=== PATIENT | female | born 1980 | race Caucasian/White ===

== ENCOUNTER → 2021-11-15 08:47 | Outpatient (BNVA) | payer MEDICAID, SELFPAY | PROVIDERS: Visit Provider Family Medicine Adult Medicine | DX: R68.89 Other general symptoms and signs (principal); N95.2 Postmenopausal atrophic vaginitis; M51.16 Intervertebral disc disorders with radiculopathy, lumbar region; Z78.9 Other specified health status | CPT/HCPCS: 80053; 82672; 83036; 84144; 84443; 85025 ==

== ENCOUNTER → 2021-11-21 10:25 | Outpatient (BNVA) | payer MEDICAID, SELFPAY | PROVIDERS: Referring Provider Family Medicine Adult Medicine; Visit Provider Orthopaedic Surgery | DX: S22.080A Wedge compression fracture of T11-T12 vertebra, initial encounter for closed fracture (principal); M21.372 Foot drop, left foot; M47.894 Other spondylosis, thoracic region; X58.XXXA Exposure to other specified factors, initial encounter | CPT/HCPCS: 72070; 72110 ==

== ENCOUNTER 2021-12-04 12:34 | Outpatient (CLI) | payer MEDICAID, SELFPAY ==
--- NOTE | 2021-12-04 13:00 | MR_ITS ---
WS: [id number] MRI LUMBAR SPINE NONCONTRAST HISTORY: M51.16 - Intervertebral disc disorders with radiculopathy... COMPARISON: None available. TECHNIQUE: Sagittal and axial multisequence imaging is submitted. Focal increased signal within T8, T12 and L3 consistent with hemangiomas. Normal lumbar alignment with no compression fractures or marrow edema. Disc spaces and vertebral body heights are well-preserved. Conus terminates normally at L1-2 disc level. L1-L2: Normal. L2-L3: Normal. L3-L4: Mild ligamentum flavum hypertrophy. No stenosis. L4-L5: Mild annular disc bulging with mild ligamentum flavum disease and facet arthritis. Shallow dis c protrusions in the proximal neural foramen bilaterally with annular fissures. There is very slight contact on the posterior surface of the exiting RIGHT L4 nerve root. There is very slight disc contac t but no displacement on the traversing L5 nerve roots. L5-S1: Normal. MR/MR lumbar spine wo con* [id number] IMPRESSION: 1. Bilateral foraminal disc protrusion with annular fissures at L4-5. Mild con tact on the posterior RIGHT L4 nerve root. Minimal contact but no displacement of the traversing L5 nerve roots. 2. No high-grade central or foraminal stenosis.
== END 2021-12-04 12:35 | disposition home or self-care (01) ==
PROVIDERS: Visit Provider Orthopaedic Surgery
DX: M51.16 Intervertebral disc disorders with radiculopathy, lumbar region (principal); M51.26 Other intervertebral disc displacement, lumbar region
CPT/HCPCS: 72148

== ENCOUNTER → 2021-12-20 11:02 | Outpatient (BNVA) | payer MEDICAID, SELFPAY | PROVIDERS: Visit Provider Orthopaedic Surgery | DX: Z20.822 Contact with and (suspected) exposure to COVID-19 (principal) | CPT/HCPCS: 87635 ==

== ENCOUNTER 2021-12-27 07:06 | Day surgery (SDC) | payer MEDICAID, SELFPAY ==
[2021-12-20 11:59] VITALS: BMI 31.4
[2021-12-27] VITALS (13 sets, daily range): BP systolic 116–138; BP diastolic 68–92; PULSE 57–76; RESP 18; TEMP 36.1–36.6; O2SAT 96–100
--- NOTE | 2021-12-27 | XR_ITS ---
WS: [id number] INTRAOPERATIVE TECHNIQUE: 2 Spot fluoroscopic images for intraoperative purposes. FLUOROSCOPY TIME: 10.1 seconds CLINICAL INFORMATION: lumbar decompression COMPARISON: None. FINDINGS: Localization marker projected over the LEFT L4-L5 interspace dorsally. XR/XR lumbar spine 1V [id number] IMPRESSION: Images obtained for intraoperative purposes.
--- NOTE | 2021-12-27 | SCC_ITS ---
Procedure done: 1. Bilateral L4/5 laminectomy with partial facetectomies 10.1 seconds of fluoroscopic guidance, for a cumulative dose of 2.84 mGy, was provided to Dr. Andrews by the radiology department. C-arm images of the lumbar spine were saved for the patient's permanent record. [facility]
--- NOTE | 2021-12-27 07:17 | W.PM.OPSUD ---
Surgery/Procedure H&P Update DATE OF PROCEDURE: December 27, 2021 DATE H&P PERFORMED: 12/07/21 H&P UPDATE INFORMATION: I have reviewed H&P completed within last 30 days, I have examined patient prior to procedure and No changes to prior documentation PLANNED PROCEDURE: Operation Date: 12/27/21 08:10 Proposed Procedures p Lumbar Spine Decompression m48.062/(Not Applicable) - Jorje Andrews DO
[2021-12-27] MEDS: sodium chloride 0.9% 1,000 ML 30 ML IV (07:42)
[2021-12-27] MEDS: clindamycin 900 MG/50 ML PREMIX 100 MG IV (08:00)
--- NOTE | 2021-12-27 08:37 | ANES.PREANE2 ---
Pre-Anesthetic Assessment Height/Weight: Height 1.63 m Weight 83.007 kg Temp Pulse Resp BP Pulse Ox 97 F L 76 18 135/92 97 12/27/21 07:36 12/27/21 07:36 12/27/21 07:36 12/27/21 07:36 12/27/21 07:36 Preop Diagnosis: Lumbar stenosis L4-5 Operation Date: 12/27/21 08:10 Proposed Procedures p Lumbar Spine Decompression m48.062/(Not Applicable) - Jorje Andrews, DO Familial anesthetic complications: None Was Beta Hailey taken within 24 hours: N/A Was Clonidine taken within 24 hours: N/A Last intake: Intake Last Liquid Date 12/26/21 Last Liquid Time 20:00 Last Solid Date 12/26/21 Last Solid Time 20:00 Social Tobacco and No alcohol Exam alert, oriented x 3, clear to auscultation bilaterally and regular rate & rhythm Airway Submandibular: within normal limits Cervical ROM: within normal limits Mallampati: Class II Dentition: caps Pulmonary Asthma and Chronic Obstructive Pulmonary Disease Musc/skel Lower Back Pain and Osteoarthritis/DJD Chronic pain/opioid Neuropsych Neuropathy Anesthetic Plan ASA status: 3 Anesthesia: General Risk of > 500 ml blood loss (7ml/kg in children): No Medications/Allergies Home Medications Medication Instructions Recorded Confirmed Last Taken Type albuterol sulfate 90 mcg/actuation 2 puff INHALATION Q6H PRN #8.5 g 11/16/21 12/27/21 12/27/21 06:30 Rx aerosol inhaler cyclobenzaprine 10 mg tablet 10 mg PO TID #90 tab 11/16/21 12/27/21 1 Day Ago Rx ~12/26/21 meloxicam 15 mg tablet 15 mg PO DAILY #30 tab 11/16/21 12/27/21 2 Weeks Ago Rx ~12/13/21 oxycodone 5 mg tablet 5 mg PO Q4H PRN 12/20/21 12/27/21 1 Day Ago History ~12/26/21 Allergies Allergy/AdvReac Type Severity Reaction Status Date / Time amoxicillin Allergy Severe ALGY-Anaphy Verified 12/27/21 07:34 laxis Penicillins Allergy Severe ALGY-Anaphy Verified 12/27/21 07:34 laxis gabapentin Allergy Intermediate ALGY-Bliste Verified 12/27/21 07:34 r acetaminophen [From Vicodin] Allergy Mild ALGY-Hives Verified 12/27/21 07:34 hydrocodone [From Vicodin] Allergy Mild ALGY-Hives Verified 12/27/21 07:34 Current Medications Generic Name Dose Route Start Last Admin Trade Name Zander PRN Reason Stop Dose Admin Sodium Chloride 1,000 mls @ 30 mls/hr 12/27/21 07:30 12/27/21 07:42 Sodium Chloride 0.9% IV 12/28/21 07:29 30 mls/hr .Q24H AMOS Administration PFSH Anesthesia Medical History Asthma Bladder prolapse Cigarette smoker Deviated septum Heat intolerance Left foot drop Lumbar disc disease with radiculopathy Participant in health and wellness plan Perimenopausal atrophic vaginitis T12 compression fracture Surgical History H/O removal of cyst History of partial hysterectomy Family History Other CAD (coronary artery disease) Cancer Social History Second hand smoke exposure: Yes Alcohol intake: never Marital status: Current occupational status: employed Data Anesthesia Cardiac Studies: No Data to Display
--- NOTE | 2021-12-27 08:57 | PM.OP ---
Operative Report Date of procedure: December 27, 2021 Pre-op diagnosis: Preop Diagnosis Lumbar stenosis L4-5 with neurogenic claudication Post-op diagnosis: same Procedure done: 1. Bilateral L4/5 laminectomy with partial facetectomies Surgeon: Jorje Andrews Dinkey Brakeman: [place] Dinkey Brakeman: The surgical assistant certified, SAE Rai was needed for his expertise under the microscope. He was important and necessary throughout the procedure to complete in a safe and timely manner. He assisted with patient positioning prepping and draping tissue retraction suctioning of the operative field protection of the dural sac and tissue closure Estimated blood loss (mL): 5 Procedure: Bilateral L4/5 laminectomy with partial facetectomies Patient is brought to the operative suite. After undergoing anesthesia they are placed in the prone position. All areas of impingement are well padded. Patient is then prepped and draped in the normal sterile fashion. A skin incision is made over the L4/5 level. This is confirmed under c-arm guidance. A series of dilators are passed and the tubular retractor is docked on the L4 lamina. A bovie is used to clear the soft tissue off the lamina and the L 4/5 facet joint. A high speed alexus is then used to perform the laminectomy and take down the medial aspect of the L 4/5 facet joint. A kerrison rongeure was then used to take down the remaining lamina and smooth the edged of the laminectomy up to the point where the ligamentum flavum attaches. Attention was then brought to the medial aspect of the facet joint. The remaining medial aspect of the superior and inferior aspect of the facet joint were taken down with the kerrison from the pedicle of L4 to L 5. The facet joint had significant hypertrophy. Attention was then brought to the Ligamentum Flavum. The ligament was taken down from the lamina of L4 to L5 and out medially to the remaining facet joint. The ligament was thick. The dura was then exposed. The dura was in good repair. The L4 nerve was then traced with a curette out the L4/5 foramen and found to be adequately decompressed. The L5 nerve was traced with a curette around the L5 pedicle. The lateral recess was opened with a kerrison helping to further decompress the L5 nerve. The tubular retractor was then tilted to the contralateral side. The bovie was used to take down the soft tissue on the spinous process. The high speed alexus was used to take down the spinous process and then the contralateral lamina of L4. The kerrison rongeur was used to take down the remaining lamina to the point where the ligamentum flavum attached and the ligamentum flavum was taken down from L4 to L5. The kerrison rongeur was then used to reach across and take down the medial aspect of the contralateral L4/5 facet joint.The currete was used to trace the contralateral L4 nerve out the L4/5 foramen to make sure it was decompressed adequatesly and the L5 was traced around the L5 pedicle. The lateral recess was opened further with the kerrison to ensure the L5 is adequately decompressed. Wound is then irrigated copiously with saline and surgiflo is used to stop any bleeding. The tubular retractor is removed and the wound is closed with vicryl and monocryl suture. Glue is then used to protect the wound. A sterile dressing is then placed. Patient was then placed in the supine position and transferred to the PACU in stable condition.
[2021-12-27] MEDS: fentaNYL 50 mcg/mL INJ 2mL IVP (09:32)
[2021-12-27] MEDS: oxyCODONE 5 mg IR Tab/Cap PO (10:25)
--- NOTE | 2021-12-27 10:25 | ANE.PACU2 ---
Inpatient post-anesthesia follow up: Airway intact: Yes Vital signs: Temperature 97.8 F Pulse Rate 68 Respiratory Rate 18 Blood Pressure 138/87 Pulse Oximetry 98 Oxygen Delivery Me thod Room Air Oxygen Flow Rate 5 Fraction of Inspir ed Oxygen Hydration adequate: Yes Nausea and vomiting: No Pain level: 3 Mental status: Baseline
== END 2021-12-27 11:03 | disposition home or self-care (01) ==
PROVIDERS: PCP Family Medicine Adult Medicine; Visit Provider Orthopaedic Surgery
PROC: (CPT 63005; principal; 2021-12-27 08:10)
DX: M48.062 Spinal stenosis, lumbar region with neurogenic claudication (principal); J44.9 Chronic obstructive pulmonary disease, unspecified; M19.90 Unspecified osteoarthritis, unspecified site; G89.29 Other chronic pain; Z79.01 Long term (current) use of anticoagulants; F17.210 Nicotine dependence, cigarettes, uncomplicated; Z82.49 Family history of ischemic heart disease and other diseases of the circulatory system
CPT/HCPCS: 63047; 72020; 76000; 96374; J1100; J1200; J1885; J2250; J2370; J2405; J2704; J2710; J3010; J3490; J7030

== ENCOUNTER → 2022-03-22 10:15 | Outpatient (BNVA) | payer MEDICAID, SELFPAY | PROVIDERS: PCP Family Medicine Adult Medicine; Visit Provider Orthopaedic Surgery | DX: Z47.89 Encounter for other orthopedic aftercare (principal); Z98.890 Other specified postprocedural states | CPT/HCPCS: 99213 ==

== ENCOUNTER 2022-05-15 15:38 | Outpatient (CLI) | payer MEDICAID, SELFPAY ==
--- NOTE | 2022-05-15 16:00 | MR_ITS ---
WS: [id number] MRI LUMBAR SPINE WITH CONTRAST TECHNIQUE: Sagittal T1, T2 and STIR imaging. Axial T1 and T2 imaging. Post gadolinium imaging was obt ained. CLINICAL INFORMATION: M48.062 - Spinal stenosis, lumbar region with neurogenic ... COMPARISON: MRI December 04, 2021 FINDINGS: Mild lumbar curve. No acute compression. Benign hemangiomas T12 and L3 vertebral bodies. Postoperativ e changes bilateral hemilaminectomy L4-L5 is new from previous. L1-L2: Mild annular bulging. Spinal canal and foramen are patent. L2-L3: Normal. L3-L4: No significant disc bulging. Mild facet arthropathy. Spinal canal and foramen are patent. L4-L5: Hemilaminectomies are new compared to previous. Normal expected postoperative enhancement. Sli ght effacement of ventral thecal sac. Small bilateral foraminal protrusions similar to previous with small RIGHT annular fissure. Mild RIGHT greater than LEFT foraminal narrowing. Decompression subartic ular recess bilaterally. Mild facet arthropathy. L5-S1: Mild annular bulging. Mild facet arthropathy. Spinal canal and foramen are patent. Tiny shallow disc protrusions mid cervical spine at C4-C5 and C5-C6. This is unchanged from previous. MR/MR lumbar spine wo/w con [id number] IMPRESSION: 1. Postoperative changes hemilaminectomies L4-L5 new from previous. Decompress ion of the subarticular recess and traversing L5 nerve roots compared to previo us. Normal postoperative enhancement. Spinal canal is patent. 2. Small bilateral foraminal protrusions L4-L5 similar to previous with mild b ilateral foraminal narrowing RIGHT greater than LEFT. Tiny RIGHT annular fissur e. 3. No other significant changes compared to previous. 4. No other remarkable findings.
[2022-05-15] MEDS: gadobenate dimeglumine 5 mL vial IV (17:15)
== END 2022-05-15 15:39 | disposition home or self-care (01) ==
LOC: RAD 15:42
PROVIDERS: PCP Family Medicine Adult Medicine; Visit Provider Orthopaedic Surgery
DX: M48.062 Spinal stenosis, lumbar region with neurogenic claudication (principal)
CPT/HCPCS: 72158

== ENCOUNTER → 2022-05-17 10:51 | Outpatient (BNVA) | payer MEDICAID, SELFPAY | PROVIDERS: PCP Family Medicine Adult Medicine; Visit Provider Orthopaedic Surgery | DX: M48.061 Spinal stenosis, lumbar region without neurogenic claudication (principal); Z47.89 Encounter for other orthopedic aftercare; Z98.890 Other specified postprocedural states | CPT/HCPCS: 99214 ==

== ENCOUNTER → 2022-06-21 15:01 | Outpatient (BNVA) | payer BC, MEDICAID, SELFPAY | PROVIDERS: PCP Family Medicine Adult Medicine; Visit Provider Orthopaedic Surgery | DX: M48.062 Spinal stenosis, lumbar region with neurogenic claudication (principal); M51.16 Intervertebral disc disorders with radiculopathy, lumbar region | CPT/HCPCS: 99213; 99214 ==

== ENCOUNTER 2022-07-26 07:08 | Emergency (ER) | payer BC, MEDICAID, SELFPAY ==
[2022-07-26 07:13] VITALS: BP 163/100; PULSE 100; RESP 20; TEMP 36.8; O2SAT 94
[2022-07-26 07:23] VITALS: BP 194/99; RESP 14; O2SAT 97
--- NOTE | 2022-07-26 08:18 | W.ED.BACK ---
HPI - Back Pain/Injury General: Chief Complaint: Back Pain/Injury Stated Complaint: abd pain Time Seen by Provider: 07/26/22 07:17 Source: patient Mode of arrival: ambulatory History of Present Illness: 41-year-old female presents to the emergency room with complaints of left leg pain. Patient has had this for some time and has seen Dr. Elissa wooten the last note she was consented for surgery however there were some issues that develop between the patient in the office and ultimately she was dismissed from the practice. She has previously had surgery on her back. They were planning to do a fusion this is been a chronic longstanding thing. No recent precipitating episodes. She is complaining of pain radiating down the left leg into the foot. Patient had an MRI of the lumbar spine earlier this year on 05/15/2022. I reviewed that report see below. MD elicited complaint: back pain Pertinent past history: prior back pain and back surgery Onset (ago): month(s) Timing: constant Severity: severe Similar Symptoms Previously: Yes Quality: sharp Location: lumbar spine Radiation: left upper leg and left leg below the knee Exacerbating factors: sitting upright and walking Relieving factors: other (Right lateral recumbent position) Associated symptoms: Deny abdominal pain, arthralgias, chills, change in bowel habits, difficulty walking, dysuria, fatigue, fecal incontinence, fever(s), hematuria, myalgias, nausea, numbness, syncope, tingling/numbness/burning, urinary frequency, urinary urgency, vomiting or weakness Review of Systems Const: Denies: fever(s), chills, fatigue or malaise ENMT: Denies: throat pain, ear or mastoid pain, nasal discharge or nasal congestion Card: Denies: chest pain or syncope Resp: Denies: dyspnea, productive cough or non-productive cough GI: Denies: abdominal pain, nausea, vomiting, fecal incontinence or change in bowel habits : Denies: flank pain, difficulty voiding, dysuria, urinary frequency, urinary urgency or hematuria Skin/Breast: Denies: rash or pruritus Neuro: Denies: difficulty walking PFS ED PFSH: Medical History Asthma Bladder prolapse Cigarette smoker Deviated septum Heat intolerance Left foot drop Lumbar disc disease with radiculopathy Participant in health and wellness plan Perimenopausal atrophic vaginitis T12 compression fracture Surgical History H/O removal of cyst History of partial hysterectomy Family History Other CAD (coronary artery disease) Cancer Social History Smoking and tobacco status: never smoked Second hand smoke exposure: Yes Alcohol intake: never Marital status: Current occupational status: employed Female Reproductive History: Date of last menstrual period: 07/19/12 Spontaneous abortions: No Physical Exam Const: GENERAL APPEARANCE: cooperative and comfortable ORIENTATION/CONSCIOUSNESS: Yes awake, Yes oriented to person, Yes oriented to place and Yes oriented to time HENMT: COMMON NORMALS: normocephalic and atraumatic HEAD & SCALP: normocephalic and atraumatic Resp: COMMON NORMALS: normal respiratory effort, No retractions, No use of accessory muscles and clear to auscultation bilaterally AUSCULTATION: clear to auscultation bilaterally Cardio: COMMON NORMALS: regular rate, regular rhythm and No murmurs present (Cardio) RATE: regular rate RHYTHM: regular rhythm GI: COMMON NORMALS: Soft to palpation and No hepatosplenomegaly present AUSCULTATION: Yes normoactive bowel sounds PALPATION: Yes Soft to palpation, No Tenderness to palpation present (GI), No Guarding due to palpation present (GI) and Yes No hepatosplenomegaly present Extremity: COMMON NORMALS: normal to inspection, capillary refill normal, no clubbing, cyanosis or edema, no calf tenderness and no pedal edema Neuro: SENSORIUM/ORIENTATION: Yes oriented to person, Yes oriented to place and Yes oriented to time Skin: COMMON NORMALS: no rashes or lesions noted GENERAL SKIN EXAM: no rashes or lesions noted Course Vital Signs: Vital signs: Vital Signs Temperature 98.2 F 07/26/22 07:13 Pulse Rate 76 07/26/22 10:05 Respiratory Rate 14 07/26/22 10:05 Blood Pressure 139/77 07/26/22 10:05 Pulse Oximetry 98 07/26/22 09:57 Oxygen Delivery Me thod 07/26/22 09:57 MDM - Back Pain/Injury Medical Decision Making Reviewed most recent MRI in April of this year. Also discussed with Dr. Gutiérrez. Her right nerve root at the L4-5 level is more involved than the left. I witnessed the patient reposition her self including sitting up and side bending significantly to the left without a noticeable pain. Dr. Gutiérrez felt there is a very low likelihood unless she had traumatic event or suddenly had a large disc herniation of her having a cauda equina syndrome. He felt that with a CT would be able to see if there was significant concern for that. We will go ahead and do a CT of the lumbar spine if it is concerning may need an MRI. Medical Records I reviewed the patient's medical records. Labs I reviewed the patient's lab results. Radiology Impressions Lumbar Spine CT 07/26/22 08:26 IMPRESSION: 1. No significant changes since MRI May 07, 2022. 2. No high-grade central canal stenosis. 3. Mild annular bulging L4-L5 with prior LEFT hemilaminectomy. Mild narrowing of the subarticular recess bilaterally. Small RIGHT foraminal protrusion contacts the exiting L4 nerve root. Mild RIGHT greater than LEFT L4-L5 foraminal narrowing. 4. Mild annular bulging L3-L4 with mild LEFT L3-L4 foraminal narrowing is unchanged. 5. Mild annular bulging L5-S1 with slight effacement of ventral thecal sac. Spinal canal and foramen are patent. Discharge Plan Discharge Patient Disposition: Home Clinical Impression: Lumbar radiculopathy Condition: Stable Prescriptions: New prednisone 20 mg tablet 20 mg PO TID Qty: 15 0RF Rx Instructions: 1 p.o. 3 times daily x3 days, 1 p.o. twice daily x2 days, 1 p.o. daily x2 days diclofenac sodium 75 mg tablet,delayed release (DR/EC) 75 mg PO Q12H PRN (Reason: pain) Qty: 20 0RF Held meloxicam 15 mg tablet 15 mg PO DAILY Qty: 30 5RF Hold Instructions: Resume on 08/02/22. No Action doxycycline hyclate 100 mg tablet 100 mg PO BID 7 Days Qty: 14 0RF oxycodone 5 mg tablet 5 mg PO Q4H PRN (Reason: Pain) 7 Days Qty: 40 0RF albuterol sulfate [ProAir HFA] 90 mcg/actuation HFA aerosol inhaler See Rx Instructions .ROUTE .COMPLEX Qty: 8.5 1RF Dose Instruction: inhale TWO puffs BY MOUTH EVERY 6 HOURS NEEDED FOR SHORTNESS OF BREATH OR wheezing Rx Instructions: inhale TWO puffs BY MOUTH EVERY 6 HOURS NEEDED FOR SHORTNESS OF BREATH OR wheezing baclofen 20 mg tablet 20 mg PO BID Qty: 60 3RF Discharge Orders: Discharge ED (Routine); Ordered 07/26/22 Ordered By: Edwin Bowser Referrals: Yoni Canchola MD [Primary Care Provider] - Patient Instructions: Opioid Safety Activity Restrictions/Additional Instructions: Follow-up with neurosurgeon you are scheduled to see as planned. Return if you have worsening problems. Coding Level of Care Code ED Clinical Nurse Occupational Medicine for Chg Fwd Exam Detailed
--- NOTE | 2022-07-26 08:26 | CT_ITS ---
WS: [id number] CT LUMBAR SPINE TECHNIQUE: Noncontrast CT of the lumbar spine with coronal and sagittal reformatted images. CLINICAL INFORMATION: Back pain left leg radiculopathy COMPARISON: MRI May 15, 2022 DLP: 695.[address] scans at [facility] use at least one of these dose optimization techniques: automated e xposure control; mA and/or kV adjustment per patient size (includes targeted exams where dose is matc hed to clinical indication); or iterative reconstruction. FINDINGS: Mild lumbar curve. No acute compression. Disc bulging worse L4-L5 and L5-S1 appears unchanged from th e prior MRI. L1-L2: Mild annular bulging. Spinal canal and foramen are patent. L2-L3: Minimal annular bulging. Spinal canal and foramen are patent. L3-L4: Mild annular bulging with slight effacement of the ventral thecal sac. LEFT eccentric disc bul ging with mild LEFT foraminal narrowing appears unchanged. Mild facet arthropathy. Spinal canal and R IGHT foramen are patent. L4-L5: Mild annular bulging. Prior LEFT hemilaminectomy. Slight narrowing of the subarticular recess bilaterally. Small RIGHT foraminal protrusion contacts the exiting RIGHT L4 nerve root. Mild RIGHT gr eater than LEFT foraminal narrowing. L5-S1: Mild annular bulging with slight effacement of the ventral thecal sac. Slight narrowing of the subarticular recess bilaterally. Spinal canal and foramen are patent. Mild facet arthropathy. Prior cholecystectomy. Adrenal glands are normal. CT/CT lumbar spine wo con* [id number] IMPRESSION: 1. No significant changes since MRI May 07, 2022. 2. No high-grade central canal stenosis. 3. Mild annular bulging L4-L5 with prior LEFT hemilaminectomy. Mild narrowing of the subarticular recess bilaterally. Small RIGHT foraminal protrusion contac ts the exiting L4 nerve root. Mild RIGHT greater than LEFT L4-L5 foraminal narr owing. 4. Mild annular bulging L3-L4 with mild LEFT L3-L4 foraminal narrowing is unch anged. 5. Mild annular bulging L5-S1 with slight effacement of ventral thecal sac. Sp inal canal and foramen are patent.
[2022-07-26 08:27] VITALS: RESP 16
[2022-07-26] MEDS: morphine 4 mg/mL SDV 1 mL IVP (08:27)
[2022-07-26] MEDS: orphenadrine 30 mg/mL Inj 2 mL 60 MG IVP (08:28)
[2022-07-26] MEDS: dexamethasone 10 mg/mL INJ IVP (08:28)
[2022-07-26] MEDS: ketorolac 30 mg/mL INJ IVP (08:28)
[2022-07-26 09:57] VITALS: BP 122/78; PULSE 78; RESP 16; O2SAT 98
[2022-07-26 10:05] VITALS: BP 139/77; PULSE 76; RESP 14
== END 2022-07-26 10:07 | disposition home or self-care (01) ==
PROVIDERS: Emergency Provider Family Medicine; PCP Family Medicine Adult Medicine
DX: M54.16 Radiculopathy, lumbar region (principal); Z77.22 Contact with and (suspected) exposure to environmental tobacco smoke (acute) (chronic)
CPT/HCPCS: 72131; 96374; 96375; 99285; J1100; J1885; J2270; J2360